=== PATIENT | female | born 1960 | race Hispanic/Latino ===

== ENCOUNTER 2020-10-10 09:06 | Day surgery (SDC) | payer OTHER ==
[2020-10-07 13:15] VITALS: BP 188/82
[2020-10-10] VITALS (18 sets, daily range): BP systolic 127–154; BP diastolic 45–93
[~2020-10-10] VITALS: Ht 175.3 cm; Wt 139.8 kg
[2020-10-10] MEDS: CEFTRIAXONE SODIUM 1 GM IVP SCH ×2 (09:00→14:54)
[~2020-10-10 09:06] MED LIST: ESCI-8 PO; LOSA25TA41 PO; POTA10TA19 PO
[2020-10-10] MEDS ORDERED: LACTATED RINGERS 1000ML 1,000 ML IV ONE (09:15)
[2020-10-10] MEDS ORDERED: IOHEXOL-350 50ML VIAL IV ONE (09:50)
[2020-10-10] MEDS ORDERED: SUCCINYLCHOLINE 200MG/10ML SYR ONE (10:59)
[2020-10-10] MEDS ORDERED: DEXAMETHASONE SOD PHOSPHATE 10MG/ML 1ML VIAL ONE (10:59)
[2020-10-10] MEDS ORDERED: LIDOCAINE PF 2% 5ML ABBOJECT ONE (10:59)
[2020-10-10] MEDS ORDERED: GLYCOPYRROLATE 1 MG/5 ML SYRINGE ONE (11:00)
[2020-10-10] MEDS ORDERED: ROCURONIUM 10MG/1ML SYR 10 MG/ML ML ONE (11:00)
[2020-10-10] MEDS ORDERED: NEOSTIGMINE 5MG/5ML SYR IV ONE (11:00)
[2020-10-10] MEDS ORDERED: ONDANSETRON HCL 4 MG/2 ML VIAL ONE (11:00)
[2020-10-10] MEDS ORDERED: MIDAZOLAM HCL 1 MG/ML 2ML VIAL ONE (11:00)
[2020-10-10] MEDS ORDERED: PROPOFOL 10 MG/ML 20ML VIAL IV ONE ×2 (11:01→11:44)
[2020-10-10] MEDS ORDERED: FENTANYL CITRATE PF 50 MCG/1 ML 2ML VIAL ONE ×2 (11:01→12:33)
[2020-10-10] MEDS ORDERED: PHENAZOPYRIDINE HCL 200 MG TABLET ONE (14:15)
== END 2020-10-10 15:00 | disposition home or self-care (01) ==
LOC: DAH 09:06
PROVIDERS: ATTEND Urology
DX: N13.2 Hydronephrosis with renal and ureteral calculous obstruction (principal); Z20.822 Contact with and (suspected) exposure to COVID-19; I10 Essential (primary) hypertension; K21.9 Gastro-esophageal reflux disease without esophagitis; E66.9 Obesity, unspecified; F17.210 Nicotine dependence, cigarettes, uncomplicated; Z90.49 Acquired absence of other specified parts of digestive tract; Z90.3 Acquired absence of stomach [part of]; Z79.899 Other long term (current) drug therapy; Z98.890 Other specified postprocedural states
CPT/HCPCS: 36415; 52356; 74420; 82360; 93005; A4215; A4221; A4222; A4223; A4344; A4358; A4510; A4600; A4663; A5113; A6260; C1758 ×2; C1769 ×3; C2617; C9803; J0330; J0696; J1100; J2001; J2250; J2405; J2704 ×2; J2710; J3010 ×2; J3490; J7120 ×2; Q9967; U0003

== ENCOUNTER 2023-03-29 06:55 | Day surgery (SDC) | payer OTHER ==
[2023-03-27 13:09] LABS: BASOPHILS # (AUTO) 0.07 K/uL (0.00-0.20); BASOPHILS % (AUTO) 1.1 % (0.0-5.0); EOSINOPHILS # (AUTO) 0.16 K/uL (0.00-0.70); EOSINOPHILS % (AUTO) 2.5 % (0.0-8.0); IMMATURE GRANULOCYTE ABSOLUTE 0.01 K/uL (0-1); LYMPHOCYTES # (AUTO) 1.8 K/uL (1.0-4.8); LYMPHOCYTES % (AUTO) 27.3 % (21.0-51.0); MEAN CORPUSCULAR HEMOGLOBIN 31.4 pg (27.0-33.0); MEAN CORPUSCULAR HGB CONC 33.2 g/dL (32.0-36.0); MEAN CORPUSCULAR VOLUME 94.6 fL (79-99); MONOCYTES # (AUTO) 0.6 K/uL (0.1-1.0); MONOCYTES % (AUTO) 8.6 % (3.0-13.0); NEUTROPHILS # (AUTO) 3.9 K/uL (1.8-7.7); NEUTROPHILS % (AUTO) 60.3 % (40.0-77.0); PLATELET COUNT (AUTO) 189 K/uL (130-400); RED CELL DISTRIBUTION WIDTH 13.2 % (11.0-15.5); WHITE BLOOD COUNT (AUTO) 6.5 K/uL (4.8-10.8)
[2023-03-27 13:17] LABS: CREATININE 1.1 mg/dL (0.5-1.5); POTASSIUM 4.2 mmol/L (3.5-5.1)
[2023-03-27 13:38] VITALS: BP_SYST 192; BP_SYST 198; BP_DIAS 78; BP_DIAS 88; PULSE 77; RESP 16
[2023-03-27 13:51] VITALS: BP 160/88
[~2023-03-29] VITALS: Ht 175.3 cm; Wt 161.0 kg
[2023-03-29] VITALS (19 sets, daily range): BP systolic 123–164; BP diastolic 60–110; PULSE 15–87; RESP 12–22
[~2023-03-29 06:55] MED LIST changes: -ESCI-8 PO; -LOSA25TA41 PO; +LOSA50TA64 PO
[2023-03-29] MEDS ORDERED: LACTATED RINGERS 1000ML 1,000 ML IV ONE (07:18)
[2023-03-29] MEDS ORDERED: CEFTRIAXONE 1G VIAL ONE (07:18)
[2023-03-29] MEDS ORDERED: NEOSTIGMINE 5MG/5ML SYR IV ONE (08:39)
[2023-03-29] MEDS ORDERED: GLYCOPYRROLATE 1 MG/5 ML SYRINGE ONE (08:39)
[2023-03-29] MEDS ORDERED: SUCCINYLCHOLINE 200MG/10ML SYR ONE (08:39)
[2023-03-29] MEDS ORDERED: DEXAMETHASONE SOD PHOSPHATE 10MG/ML 1ML VIAL ONE (08:39)
[2023-03-29] MEDS ORDERED: LIDOCAINE PF 100MG/5ML (2%) SYRINGE 5ML ONE (08:39)
[2023-03-29] MEDS ORDERED: MIDAZOLAM HCL 1 MG/ML 2ML VIAL ONE (08:39)
[2023-03-29] MEDS ORDERED: PROPOFOL 10 MG/ML 20ML VIAL IV ONE (08:39)
[2023-03-29] MEDS ORDERED: ONDANSETRON 4MG INJ ONE (08:40)
[2023-03-29] MEDS ORDERED: FENTANYL CITRATE PF 50 MCG/1 ML 2ML VIAL ONE (08:40)
[2023-03-29] MEDS ORDERED: ROCURONIUM 10MG/1ML SYR 10 MG/ML ML ONE (08:40)
[2023-03-29] MEDS ORDERED: KETAMINE 50MG/ML SYRINGE 50 MG/ML DISP.SYRIN ONE (09:41)
[2023-03-29] MEDS ORDERED: LIDOCAINE HCL 400MG/20ML VIAL ONE (09:42)
[2023-03-29] MEDS ORDERED: CEFTRIAXONE 1G VIAL IVPB ONE (09:55)
[2023-03-29] MEDS ORDERED: PHENYLEPHRINE HCL 10 MG/ML 1ML VIAL IV ONE (10:24)
[2023-03-29] MEDS ORDERED: IPRATROPIUM/ALBUTEROL SULFATE 3 ML SOLUTION IH ONE (11:15)
== END 2023-03-29 13:00 | disposition home or self-care (01) ==
LOC: DAH 06:55
PROVIDERS: ATTEND Urology
DX: N20.0 Calculus of kidney (principal); E66.9 Obesity, unspecified; Z98.84 Bariatric surgery status; Z90.49 Acquired absence of other specified parts of digestive tract; Z98.890 Other specified postprocedural states; Z79.899 Other long term (current) drug therapy; Z87.891 Personal history of nicotine dependence
CPT/HCPCS: 80048; 85025; 36415; 93005; 50590; 94640; A6260; A4663; J7120 ×2; J3010; J3490 ×3; J0330; J1100; J2710; J2001; J0696 ×2; J2250; J2704; J2405; J2371; A4215; A4221; A4600